=== PATIENT | male | born 1980 | race Caucasian/White ===

== ENCOUNTER 2018-03-05 05:35 | Day surgery (SDC) | END 2018-03-05 12:05 | disposition home or self-care (01) ==

== ENCOUNTER 2018-05-28 08:47 | Day surgery (SDC) | payer OTHER ==
[2018-05-28] VITALS (16 sets, daily range): BP systolic 100–151; BP diastolic 51–86; PULSE 59–88; RESP 10–19; Ht 170.2 cm; Wt 71.8 kg
[~2018-05-28] VITALS: Ht 170.2 cm; Wt 71.8 kg
[~2018-05-28 08:47] MED LIST: CEFAZOLIN 2 GM/50 ML (PMX) 50 ML IVPB ONE; LACTATED RINGER'S 1,000 ML IV* SCH
--- NOTE | 2018-05-28 08:59 | HPN ---
Date/Time of Note Date/Time of Note DATE: 05/28/18 TIME: 08:59 Interval H&P Admission Note Pt. seen H&P reviewed: No system changes JASPREET LOUIS May 28, 2018 08:59
--- NOTE | 2018-05-28 10:37 | PREAC ---
Date/Time of Note Date/Time of Note DATE: 05/28/18 TIME: 10:36 Anesthesia Eval and Record Evaluation Time Pre-Procedure Interview DATE: 05/28/18 TIME: 10:36 Age 38 Sex male NPO: 8 hrs Preoperative diagnosis right wrist retained hardware Planned procedure removal right wrist retained hardware Past Medical History Past Medical History: None Surgery & Anesthesia Issues No known issue Meds Anticoagulation: No Beta Concha within 24 hr: No Reason Beta Concha not given: Pt. not on B-Concha No Active Prescriptions or Reported Meds Current Medications Lactated Ringer's 1,000 ml @ 25 mls/hr Q24H IV* ; Start 05/28/18 at 06:00; Stop 05/29/18 at 21:59 Meds reviewed: Yes Allergies Coded Allergies: No Known Allergies (Verified Allergy, Unknown, 05/28/18) Allergies Reviewed: Yes Labs/Studies Labs Reviewed: Reviewed by anesthesiologist Result Diagram: 05/28/1836 05/28/18 0936 Laboratory Tests 05/28/18 09:36 test: N/A Pre-procedure Exam Last vitals Vital Signs Date Temp Pulse Resp B/P (MAP) Pulse Ox O2 O2 Flow FiO2 Time Delivery Rate 05/28/18 97.8 61 16 124/68 98 Room Air 09:54 (86) Airway: Adequate mouth opening, Adequate thyromental dist Mallampati: Mallampati I Teeth: Normal Lung: Normal Heart: Normal ASA Physical Status ASA physical status: 1 Emergency: None Planned Anesthetic General/MAC: LMA Planned Pain Management Parenteral pain med Pre-operative Attestations Prior to commencing anesthesia and surgery, the patient was re-evaluated, there was verification of: *The patient's identity *The results of appropriate recent lab work and preoperative vital signs *The above evaluation not changing prior to induction *Anesthetic plan, risk benefits, alternative and complications discussed with patient/family; questions answered; patient/family understands, accepts and wishes to proceed. ANANT HAMILTON May 28, 2018 10:37
[2018-05-28] MEDS ORDERED: PROPOFOL 100 ML ONE (10:44)
[2018-05-28] MEDS ORDERED: CEFAZOLIN 1 GM INJ ONE ×2 (10:57→11:16)
[2018-05-28] MEDS ORDERED: DEXAMETHASONE 4 MG/ML 5 ML INJ ONE (10:59)
[2018-05-28] MEDS ORDERED: ONDANSETRON 4 MG INJ ONE (11:00)
[2018-05-28] MEDS ORDERED: BUPIVACAINE 0.5% (SDV) 30 ML INJ ONE (11:06)
[2018-05-28] MEDS ORDERED: POLYMYXIN/BACITRACIN 1L IRRIG ONE (11:06)
--- NOTE | 2018-05-28 11:28 | OPPN ---
Date/Time of Note Date/Time of Note DATE: 05/28/18 TIME: 11:28 Operative Report Preoperative Diagnosis right wrist deep painful hardware at the radial and ulnar wrist Postoperative Diagnosis right wrist deep painful hardware at the radial and ulnar wrist Operation/Procedure Performed removal of right wrist deep painful hardware at the radial and ulnar wrist Surgeon see signature line certified pathology assistant none Anesthesia: general Estimated blood loss: 0 - 10 ml's Transfusion Required none Specimen k wires x3 Grafts/Implants none Complications none JASPREET LOUIS May 28, 2018 11:28
--- NOTE | 2018-05-28 11:37 | PAC ---
Date/Time of Note Date/Time of Note DATE: 05/28/18 TIME: 11:36 Post-Anesthesia Notes Post-Anesthesia Note Last documented vital signs Vital Signs Date Temp Pulse Resp B/P (MAP) Pulse Ox O2 O2 Flow FiO2 Time Delivery Rate 05/28/18 97.8 61 16 124/68 98 Room Air 1136 (86) Activity: WNL Respiratory function: WNL Cardiovascular function: WNL Mental status: Baseline Pain reasonably controlled: Yes Hydration appropriate: Yes Nausea/Vomiting absent: Yes ANANT HAMILTON May 28, 2018 11:37
[2018-05-28] MEDS ORDERED: KETOROLAC 30 MG INJ IV PRN (12:00)
[2018-05-28] MEDS ORDERED: hydrALAzine 20 MG INJ IV PRN (12:00)
[2018-05-28] MEDS ORDERED: DIPHENHYDRAMINE 50 MG INJ IV PRN (12:00)
[2018-05-28] MEDS ORDERED: FENTAnyl 50 MCG/ML VIAL IV PRN ×3 (12:00)
[2018-05-28] MEDS ORDERED: MEPERIDINE 25 MG INJ IV PRN (12:00)
[2018-05-28] MEDS ORDERED: EPHEDrine SULFATE 50 MG/5 ML SYG IV PRN (12:00)
[2018-05-28] MEDS ORDERED: ALBUTEROL 0.083% (NEB) 2.5 MG/3 ML AMP HHN PRN (12:00)
[2018-05-28] MEDS ORDERED: OXYCODONE/ACETAMINOPHEN (5/325) TAB PO PRN ×2 (12:00)
[2018-05-28] MEDS ORDERED: LABETALOL HCL 20MG INJ IV PRN (12:00)
[2018-05-28] MEDS ORDERED: HYDROmorphONE 1 MG/5 ML IV SYRINGE IV PRN ×3 (12:00)
--- NOTE | 2018-05-28 13:27 | OPR ---
DATE OF OPERATION: 05/28/2018 SURGEON: Aristeo Naik MD ANESTHESIA: General. PREOPERATIVE DIAGNOSES: 1. Right wrist deep, painful hardware at the radial styloid. 2. Right wrist deep, painful hardware at the ulnar aspect of the wrist. POSTOPERATIVE DIAGNOSES: 1. Right wrist deep, painful hardware at the radial styloid. 2. Right wrist deep, painful hardware at the ulnar aspect of the wrist. PROCEDURES: 1. Removal of deep hardware, right wrist at the radial styloid. 2. Removal of deep hardware, right ulnar wrist distal to the ulnar styloid. 3. Removal of deep hardware at the ulnar wrist at the dorsal ulnar triquetrum. OPERATIVE FINDINGS: K-wires x3. INDICATION FOR PROCEDURE: A 38-year-old male with injury to the right wrist who underwent previous surgical fixation. He required deep buried hardware for a total of 2 months to allow his injury to heal. This required return to the operating room for removal of deep hardware. The patient elected to proceed understanding the risks and benefits. DESCRIPTION OF PROCEDURE: The patient was seen in the preoperative area and all further questions were answered. Again, he gave informed consent, understanding the risks and benefits. He was taken to operative suite in the supine position. He was placed under general anesthesia and Ancef 2 grams IV were given. Tourniquet was placed in the right upper extremity and right upper extremity was prepped with ChloraPrep stick and draped in usual sterile fashion. Esmarch bandage was used to exsanguinate the extremity. Tourniquet was inflated to 250 mmHg. Attention was first turned to the radial styloid and x-ray imaging confirmed location of K-wire. A 15-blade knife was used to dissect through skin and subcutaneous tissue and tenotomy scissors to dissect through the deep soft tissues. Care was taken to protect the radial sensory nerve. A needle deliver driver was used to remove the deep buried K-wire. The wound was copiously irrigated and skin was closed with 5-0 nylon. Attention was turned to the ulnar wrist and there was a pin distal to the ulnar styloid. It was localized under x-ray imaging and a 15-blade knife was used to dissect through skin and subcutaneous tissue and needle deliver driver was used to remove the deep buried K-wire. I attempted to remove the dorsal ulnar K-wire through the same incision, but it was not possible to achieve. A separate incision was made at the dorsal ulnar wrist at the triquetrum and knife was used to dissect through skin and subcutaneous tissue and tenotomy scissors through the soft tissues. A needle deliver driver was used to remove the deep buried K-wire. The wounds were copiously irrigated and skin was closed with 5-0 nylon. Xeroform was placed over wound followed by sterile gauze, Webril and a bias bandage. Tourniquet was deflated after 12 minutes. The patient was awakened from anesthesia. He was taken to postoperative suite in stable condition, tolerated procedure well without complication. SPECIMENS: K-wires x3. ESTIMATED BLOOD LOSS: 5 mL. COUNTS: Sponge, instrument, needle counts correct. TOURNIQUET TIME: 12 minutes. CONDITION ON DISCHARGE: Stable. The patient was given a nonrefillable 5-day prescription for pain medication for surgery today. Dictated By: ARISTEO ZAMUDIO/BALBIR Conf#: [id number] DID#: [id number] KWAME
--- NOTE | 2018-05-28 14:03 | RADRPT ---
Vent Rate: 56 bpm RR Interval: 0 msec DC Interval: 176 msec QRS Duration: 96 msec QT Interval: 404 msec QTC Interval: 389 msec P-R-T [place]: 68 - 29 - 43 degrees Sinus bradycardia Otherwise normal ECG Electronically Signed By: Valeriano Baxter
== END 2018-05-28 13:47 | disposition home or self-care (01) ==
LOC: SDS 08:47
PROVIDERS: ATTEND Orthopaedic Surgery Hand Surgery
DX: T84.84XA Pain due to internal orthopedic prosthetic devices, implants and grafts, initial encounter (principal); M25.531 Pain in right wrist; R00.1 Bradycardia, unspecified; X58.XXXA Exposure to other specified factors, initial encounter; Y93.89 Activity, other specified; Y92.89 Other specified places as the place of occurrence of the external cause; Y99.8 Other external cause status
CPT/HCPCS: 20680; 71045; 73110; 80048; 85025; 85610; 85730; 88300; 93005; J0690; J1100; J1170; J2405; J3010; Z7512; Z7610